=== PATIENT | female | born 1960 | race Two or more races ===

== ENCOUNTER 2020-05-18 10:39 | Emergency (ER) | payer OTHER ==
[~2020-05-18] VITALS: Ht 154.9 cm; Wt 76.7 kg
[2020-05-18] MEDS ORDERED: INDERAL LA80 MG PO (10:48)
[2020-05-18] MEDS ORDERED: BENADRYL ALLERG25 MG PO (15:40)
[2020-05-18] MEDS ORDERED: ACETAMINOPHEN650 M2 PO (15:40)
[2020-05-18] MEDS ORDERED: INTESTINEX680 M2 PO (15:40)
[2020-05-18] MEDS ORDERED: PEPCID AC20 MG PO (15:40)
== END 2020-05-18 15:53 | disposition home or self-care (01) ==
LOC: ER 10:39
DX: T61.774A Other fish poisoning, undetermined, initial encounter (principal); K52.1 Toxic gastroenteritis and colitis; R53.81 Other malaise; Y92.89 Other specified places as the place of occurrence of the external cause; Z03.818 Encounter for observation for suspected exposure to other biological agents ruled out

== ENCOUNTER 2020-05-22 18:57 | Emergency (ER) | payer OTHER ==
[~2020-05-22] VITALS: Ht 157.5 cm; Wt 76.7 kg
[~2020-05-22 18:57] MED LIST: ACETAMINOPHEN650 M2 PO; BENADRYL ALLERG25 MG PO; INDERAL LA80 MG PO; INTESTINEX680 M2 PO; PEPCID AC20 MG PO
== END 2020-05-22 23:17 | disposition home or self-care (01) ==
LOC: ER 18:57
DX: R10.84 Generalized abdominal pain (principal)

== ENCOUNTER 2020-05-28 16:46 | Emergency (ER) | payer OTHER ==
[~2020-05-28] VITALS: Ht 154.9 cm; Wt 76.7 kg
[2020-05-29] MEDS ORDERED: LEVSIN0.125 MG PO (05:30)
[2020-05-29] MEDS ORDERED: NEURONTIN300 MG PO (05:30)
== END 2020-05-29 05:37 | disposition home or self-care (01) ==
LOC: ER 16:46
DX: T61 Toxic effect of noxious substances eaten as seafood (principal); E86.0 Dehydration; R10.84 Generalized abdominal pain; F41.8 Other specified anxiety disorders; Y92.89 Other specified places as the place of occurrence of the external cause; Z03.818 Encounter for observation for suspected exposure to other biological agents ruled out